=== PATIENT | female | born 1945 | race Caucasian/White ===

== ENCOUNTER → 2023-09-25 10:25 | Outpatient (REF) | payer MEDICARE, OTHER, SELFPAY ==
[2023-09-25 10:53] LABS: % Basophils 0.8 % (0-2); % Eosinophils 4.1 % (0-6); % Immature Granulocytes 0.2 % (0-0.5); % Lymphocytes 38.6 % (20.5-51.1); % Monocytes 9.8 % (1.7-9.3); % Neutrophils 46.5 % (42.2-75.2); Absolute Basophils 0.1 10^3/uL (0-0.2); Absolute Eosinophils 0.3 10^3/uL (0-0.7); Absolute Lymphocytes 2.6 10^3/uL (1.2-3.4); Absolute Monocytes 0.7 10^3/uL (0.1-0.6); Absolute Neutrophils 3.1 10^3/uL (1.4-6.5); Hematocrit 37.4 % (37.0-47.0); Hemoglobin 12.8 g/dL (12.0-16.0); Mean Corp Hgb Conc. 34.2 g/dL (33.0-37.0); Mean Corpuscular Hgb 31.3 pg (27.0-31.0); Mean Corpuscular Volume 91.4 fL (81.0-99.0); Mean Platelet Volume 9.1 fL (7.4-10.4); Nucleated Red Blood Cells % 0 %; Platelet Count 323 10^3/uL (130-400); Red Blood Cell Count 4.09 10^6/uL (4.20-5.40); Red Cell Dist. Width 12.9 % (11.5-14.5); White Blood Cell Count 6.7 10^3/uL (4.8-10.8)
[2023-09-25 11:19] LABS: ALT (SGPT) 20 U/L (0-35); AST (SGOT) 23 U/L (14-36); Albumin 4.7 g/dl (3.5-5.0); Alkaline Phosphatase 69 U/L (38-126); Blood Urea Nitrogen 25 mg/dl (7-17); Calcium 9.7 mg/dl (8.4-10.2); Carbon Dioxide 26 mmol/L (22-30); Chloride 103 mmol/L (98-107); Glucose 97 mg/dl (70-99); Potassium 4.4 mmol/L (3.5-5.1); Sodium 139 mmol/L (135-145); Total Bilirubin 0.6 mg/dl (0.2-1.3); Total Protein 7.7 g/dl (6.3-8.2); Triglyceride 136 mg/dl (10-149); Very Low Density Lipoprotein 27 mg/dl (0-30); eGFR 58.39
[2023-09-25 11:29] LABS: HDL Cholesterol 119 mg/dl
[2023-09-25 11:51] LABS: LDL Cholesterol, Calculated 71 mg/dl; Total Cholesterol 217 mg/dl (50-199)
[2023-09-26 11:09] LABS: Intact PTH 52.8 pg/ml (13.6-85.8)
== END ==
LOC: REG 10:25
PROVIDERS: ATTENDING PHYSICIAN Internal Medicine
DX: N18.31 Chronic kidney disease, stage 3a (principal); E03.9 Hypothyroidism, unspecified
CPT/HCPCS: 36415; 80053; 80061; 83970; 84443; 85025

== ENCOUNTER → 2023-10-08 16:06 | Outpatient (REF) | payer MEDICARE, OTHER, SELFPAY | LOC: MRI 3T 16:06 | PROVIDERS: ATTENDING PHYSICIAN Internal Medicine | DX: N64.52 Nipple discharge (principal); N64.4 Mastodynia | CPT/HCPCS: 77049; A9585 ==

== ENCOUNTER → 2024-07-12 13:03 | Outpatient (REF) | payer MEDICARE, OTHER, SELFPAY | LOC: RAD 13:03 | PROVIDERS: ATTENDING PHYSICIAN Internal Medicine | DX: Z13.820 Encounter for screening for osteoporosis (principal); Z78.0 Asymptomatic menopausal state | CPT/HCPCS: 77080 ==

== ENCOUNTER 2024-07-31 09:12 | Emergency (ER) | payer MEDICARE, OTHER, SELFPAY ==
[2024-07-31 09:28] VITALS: BP 139/78
[2024-07-31 10:51] VITALS: BP 113/54
[2024-07-31 11:00] VITALS: BP 112/61
--- NOTE | 2024-07-31 11:42 | ED.MUSCINJ ---
HPI-Injury
General
Chief Complaint: Musculo-Skeletal Complaint
Source: patient
Exam Limitations: none
Time Seen by Provider: 07/31/24 11:35
Nursing documentation reviewed up to this point in time: agreed with
History of Present Illness-Injury
Initial Injury comments:
79-year-old female with history of HLD, depression, chronic right shoulder pain, states she does yoga frequently and recently her right shoulder started to bother her again then last night while laying in bed around 10 PM she developed a pain in her
left shoulder that radiates down her arm. 'I just want a make sure not having a heart attack.' She denies chest pain or shortness of breath. The pain is worse with movement.
Past History
Past History
ED Past Medical History: Hypercholesterolemia and Psychiatric (depression)
ED Past Surgical History: and Gynecological (Breast reduction)
Social History
Tobacco: Non-smoker
Alcohol: Occasional
Drug: None
Personal:
Living: with family
Review of Systems
Review of Systems
Allergies reviewed?: Yes
All Other Systems: ROS reviewed and negative except as documented in HPI and ROS
Constitutional: Denies fever or fatigue
Respiratory: Denies trouble breathing
Cardiac: Denies chest pain, diaphoresis or palpitations
ABD/GI: Denies abdominal pain, nausea or diarrhea
: Denies dysuria or difficulty voiding
Musculoskeletal: Reports other (Chronic right shoulder pain, new left shoulder pain that radiates down left arm as of last night); Denies neck pain or back pain
Skin: Reports no symptoms
Neurological: Reports no symptoms
Phy Exam
Physical Exam
Physical Exam:
GENERAL: No acute distress. A&Ox3.
CONSTITUTIONAL: Afebrile.
EYES: clear, conjunctivae normal
ENMT: moist mucus membranes
RESPIRATORY: Regular respirations, nonlabored, lungs clear.
CARDIOVASCULAR: Regular rate and rhythm, no murmurs, no rubs.
GI: Soft, nontender, normal BS
MUSCULOSKELETAL: Immediately point tender anterior aspect of left shoulder. Adequate range of motion of left shoulder. Distal neurovascular intact. Moves with ease. Well perfused.
SKIN: Warm, dry, pink
PSYCH: Normal mood and affect. Well kept, interactive and appropriate
NEUROLOGIC: Awake, alert and oriented. No focal neurological deficits
Injury Course
Orders/Labs/Results
Orders:
Orders
07/31/24 09:29
EKG [Electrocardiogram (*1)] Urgent
Reason for Study: Vertigo / Dizzy
EKG- Treatment ONCE
07/31/24 11:41
CR Chest - 2 Views Urgent
Comment:
Reason For Exam: left shoulder pain
Shoulder, Left 2 View CR [CR Shoulder - Left Min 2 View*] Urgent
Comment:
Reason For Exam: pain anterior shoulder radiates down arm
07/31/24 12:04
Complete Blood Count/With Diff Urgent
Comprehensive Metabolic Panel Urgent
Troponin I Urgent
Abnormal Lab Results
07/31/24
12:04
RBC 4.02 L 10^6/uL
(4.20-5.40)
Hct 36.6 L %
(37.0-47.0)
MCH 31.1 H pg
(27.0-31.0)
BUN 21 H mg/dl
(7-17)
07/31/24 12:04
07/31/24 12:04
MDM/Problems Addressed
Differential Diagnosis Includes:
Shoulder bursitis, calcific bursitis, osteoarthritis, rotator cuff injury
MDM/Problems Addressed:
79-year-old female with history of HLD, depression, chronic right shoulder pain that improved with physical therapy, states she does yoga frequently and recently her right shoulder started to bother her again so she has been resting it. Then last
night while laying in bed around 10 PM she developed a pain in her left shoulder that radiates down her arm. 'I just want a make sure not having a heart attack.' She denies chest pain or shortness of breath. The pain is worse with movement.
Point tender anterior aspect of left shoulder, considering bursitis versus calcific bursitis
CBC normal
CMP with no clinically significant abnormality
Troponin normal
EKG NSR
Left shoulder radiology report read: IMPRESSION: There is no evidence of acute fracture or dislocation. Mild degenerative changes of the acromioclavicular and glenohumeral joints.
Chest x-ray radiology report read: No acute cardiopulmonary abnormality.
This is most likely bursitis/tendinitis of the shoulder.
She states she will follow-up with her primary doctor and then her orthopedic doctor as needed
*Critical Care Note
Total Time (30-74mins, 75-104mins- exclusive of procedures): Not Applicable
ED Attending Note
-
Portions of this chart may have been created with voice recognition software.� Occasional wrong word or��sound alike� substitutions may have occurred due to the inherent limitations of voice recognition software.
Discharge Plan
Departure
Patient Disposition: Home (Routine Discharge)
Date of Disposition: 07/31/24
Time of Disposition: 12:42
Patient with high blood pressure during this ER visit?: No
Condition: Good
Discharge Problem:
Acute pain of left shoulder
Instructions: Shoulder Tendinopathy (DC), Bursitis ED
Prescriptions:
No Action
atorvastatin 10 MG tablet
10 mg PO HS
vitamin B complex 1 TAB tablet
1 tab PO MOWEFR
estradiol 0.5 MG tablet
0.5 mg PO HS
progesterone micronized [Prometrium] 100 MG capsule
100 mg PO HS
cholecalciferol (vitamin D3) [Vitamin D3] 1,000 UNIT capsule
1,000 unit PO HS
bupropion HCl 300 MG tablet extended release 24 hr
300 mg PO HS
Glucosamine Hcl
1 tab PO HS
Referrals:
Sonu Jameson MD [Family Provider] - As needed
Activity Restrictions/Additional Instructions:
As we discussed, there is no indication of a heart attack.
Tylenol as needed for pain, follow-up with your orthopedic doctor or your primary doctor if the shoulder is not improving within the next week.
Interventions
Interventions:
*Risk Screen - Suicide Last Done: 07/31/24 11:19
*General Assessment Last Done: 07/31/24 12:06
*Neglect/Abuse Screening Last Done: 07/31/24 11:19
*ED COVID-19 Vaccine History Last Done: 07/31/24 09:28
*Nursing Disposition Last Done: 07/31/24 13:00
ED-Musculoskeletal Assessment Last Done: 07/31/24 11:19
Discharge Date and Time
Discharge Date/Time: 07/31/24 13:40
Print Language: IRANIAN
[2024-07-31 12:04] VITALS: BP 124/74
[2024-07-31 12:15] LABS: % Basophils 0.6 % (0-2); % Eosinophils 2.1 % (0-6); % Immature Granulocytes 0.2 % (0-0.5); % Lymphocytes 26.8 % (20.5-51.1); % Monocytes 8.4 % (1.7-9.3); % Neutrophils 61.9 % (42.2-75.2); Absolute Eosinophils 0.1 10^3/uL (0-0.7); Absolute Lymphocytes 1.8 10^3/uL (1.2-3.4); Absolute Monocytes 0.6 10^3/uL (0.1-0.6); Absolute Neutrophils 4.1 10^3/uL (1.4-6.5); Hematocrit 36.6 % (37.0-47.0); Hemoglobin 12.5 g/dL (12.0-16.0); Mean Corp Hgb Conc. 34.2 g/dL (33.0-37.0); Mean Corpuscular Hgb 31.1 pg (27.0-31.0); Mean Platelet Volume 9.4 fL (7.4-10.4); Nucleated Red Blood Cells % 0 %; Platelet Count 268 10^3/uL (130-400); Red Blood Cell Count 4.02 10^6/uL (4.20-5.40); White Blood Cell Count 6.7 10^3/uL (4.8-10.8)
[2024-07-31 12:22] VITALS: BP 129/63
[2024-07-31 12:26] LABS: ALT (SGPT) 20 U/L (0-35); AST (SGOT) 25 U/L (14-36); Albumin 4.7 g/dl (3.5-5.0); Alkaline Phosphatase 49 U/L (38-126); Blood Urea Nitrogen 21 mg/dl (7-17); Calcium 9.6 mg/dl (8.4-10.2); Carbon Dioxide 27 mmol/L (22-30); Chloride 101 mmol/L (98-107); Glucose 93 mg/dl (70-99); Potassium 4.8 mmol/L (3.5-5.1); Sodium 135 mmol/L (135-145); Total Bilirubin 0.5 mg/dl (0.2-1.3); Total Protein 7.3 g/dl (6.3-8.2); eGFR > 60.00
[2024-07-31 12:34] LABS: Troponin I < 0.012 ng/ml
== END 2024-07-31 13:40 | disposition home or self-care (01) ==
LOC: EMR 09:12
PROVIDERS: Registered Nurse; EMERGENCY PHYSICIAN Emergency Medicine; FAMILY PHYSICIAN Internal Medicine
DX: M25.511 Pain in right shoulder (principal); E78.00 Pure hypercholesterolemia, unspecified; F32.A Depression, unspecified; G89.29 Other chronic pain
CPT/HCPCS: 99283; 71046; 73030; 80053; 84484; 85025; 93005

== ENCOUNTER → 2025-07-14 12:11 | Outpatient (REF) | payer MEDICARE, OTHER, SELFPAY ==
[2025-07-14 13:40] LABS: ALT (SGPT) 19 U/L (0-35); AST (SGOT) 23 U/L (14-36); Albumin 4.9 g/dl (3.5-5.0); Alkaline Phosphatase 55 U/L (38-126); Blood Urea Nitrogen 17 mg/dl (7-17); Calcium 9.9 mg/dl (8.4-10.2); Carbon Dioxide 28 mmol/L (22-30); Chloride 99 mmol/L (98-107); Glucose 89 mg/dl (70-99); Potassium 4.6 mmol/L (3.5-5.1); Sodium 137 mmol/L (135-145); Total Protein 7.9 g/dl (6.3-8.2); eGFR 57.66
[2025-07-14 14:10] LABS: TSH 1.69 uIU/ml (0.47-4.68)
== END ==
LOC: REG 12:11
PROVIDERS: ATTENDING PHYSICIAN Internal Medicine Endocrinology, Diabetes & Metabolism; FAMILY PHYSICIAN Internal Medicine
DX: E03.9 Hypothyroidism, unspecified (principal)
CPT/HCPCS: 36415; 80053; 84439; 84443; 86376; 86800